=== PATIENT | male | born 1950 | race Caucasian/White ===

== ENCOUNTER 2024-03-21 23:05 | Inpatient (IN) ==
[2024-03-21 23:33] LABS: Basophils # (auto) 0.03 K/uL (0.00-0.20); Basophils % (auto) 0.4 %; Eosinophils # (auto) 0.02 K/uL (0.00-0.50); Eosinophils % (auto) 0.3 %; Hematocrit (blood only) 36.5 % (42.0-52.0); Hemoglobin 12.9 g/dl (14.0-18.0); Immature Granulocytes # (auto) 0.02 K/uL (0.01-0.20); Immature Granulocytes % (auto) 0.3 %; Lymphocytes # (auto) 0.34 K/uL (1.20-3.40); Mean Corpuscular Hemoglobin 30.6 pg (25.0-34.0); Mean Corpuscular Hgb Conc 35.3 g/dL (32.0-36.0); Mean Corpuscular Volume 86.5 fL (80.0-100.0); Mean Platelet Volume 8.8 fL (9.4-12.4); Monocytes # (auto) 1.03 K/uL (0.11-0.59); Monocytes % (auto) 15.2 %; Neutrophils # (auto) 5.32 K/uL (1.40-6.50); Neutrophils % (auto) 78.8 %; Platelet Count 155 K/uL (130-400); RDW Coefficient of Variation 13.2 % (11.5-14.5); RDW Standard Deviation 41.3 fL (36.4-46.3); Red Blood Count 4.22 M/uL (4.70-6.10); White Blood Count 6.76 K/ul (4.8-10.8)
--- NOTE | 2024-03-21 23:41 | Emergency Department Note ---
Impression & Plan Influenza A, Acute hypoxemic respiratory failure ED Provider Note NAME: ARNULFO [id number] SHER AGE: 74 SEX: M : 1950 ARRIVES VIA: Ambulance INFORMANT: Patient, ED PROVIDER(S): Rinku Redd MD CHIEF COMPLAINT: Shortness of breath, fever, weakness HPI: This is a 74-year-old male presenting for 2 days worth of shortness of breath, fever and weakness. Patient notes that he has been sick on and off for the past few weeks but increasingly weak over the past 2 days. He notes that he feels he is at a fever, significant cough. He has chest pain when he coughs. Chou no nausea or vomiting. No abdominal pain. Reports no pleurisy. ROS: See above HPI for pertinent positives & negatives. A total of 10 systems reviewed and were otherwise negative. PAST MEDICAL HISTORY: See Below PAST SURGICAL HISTORY: See Below FAMILY HISTORY: See Below SOCIAL HISTORY: See Below HOME MEDICATIONS: See Below ALLERGIES: See Below VITALS: See Below PHYSICAL EXAMINATION: General: resting comfortably in no acute distress Head: Normocephalic and atraumatic Eyes: Normal inspection, extraocular muscles intact Ear, nose, throat: Normal external exam Neck: Normal range of motion Respiratory: lungs clear to auscultation bilaterally Cardiovascular: Regular rate/rhythm, no murmur GI: soft, nontender, no guarding or rebound Extremities: nontender, moves all extremities Neuro: The patient awake and alert, appropriately conversive, no focal deficits, symmetric faces Skin: Warm, dry, and intact MEDICAL DECISION MAKING: This is a 74-year-old male presented for shortness of breath, fever and weakness. Overall patient appears sick with either upper respiratory infection or pneumonia. He is febrile here to 38.6, he is hypoxic. Will do chest x-ray to assess for pneumonia. Will do basic blood work, chest x-ray, upper respiratory panel -Chest Xray independently interpreted by me showing no pneumothorax, focal opacity, or pleural effusions. -Blood work reviewed with no similar leukocytosis or anemia. Normal electrolytes. Significant hyperglycemia without anion gap. -Patient is positive for influenza A -ECG independently interpreted by me with sinus rhythm with first-degree AV block, rate 94 normal UT, normal QRS, normal QTc, no ST segment elevations consistent with STEMI criteria -As patient is hypoxia with influenza, will admit for further treatment Differential diagnosis: Pneumonia, upper respiratory infection, PE Independent History obtained from: Snf staff Diagnostics interpreted by me: ECG: ECG independently interpreted by me with normal sinus rhythm, rate of 94, first-degree AV block, normal QRS, normal QTc, no ST segment elevations consistent with STEMI criteria Cardiac Monitoring: An order was placed for continuous cardiac monitoring. The monitor shows a rate of 93 with sinus rhythm. Past Med/Surg History Problem List (Updated 03/22/24 @ 04:12 by Rinku Redd MD) Acute hypoxemic respiratory failure (Acute) Influenza A (Acute) HBP (high blood pressure) First degree atrioventricular block by electrocardiogram Chest discomfort Near syncope Encounter for pre-operative examination Medical History Aortic aneurysm Asthma BPH (benign prostatic hyperplasia) Cancer Cardiac angina Chronic back pain Diabetes mellitus, type 2 Heart palpitations Herniated disc Hypertension IBS (irritable bowel syndrome) Kidney stones Myocardial Infarction Osteoarthritis Rheumatoid arthritis Temporomandibular joint disorder Surgical History H/O exploratory laparotomy HX EXPLORATORY SURGERY History of appendectomy History of cardiac cath 10 YEARS AGO AT [facility] History of colonoscopy History of left cataract surgery Social History Smoking Status: Former smoker Cigarettes Per Day: QUIT 1985; Second Hand Exposure: No; Do You Dip or Chew Tobacco: No; Hx Alcohol Use: No Hx Substance Use: No Preferred Language: Bahamian Communication Ability: Effective Customer Solutions Representative Required: No Beliefs That Will Affect Care: None Current [facility] Feels Safe at Home: Yes Allergies Allergies Allergy/AdvReac Type Severity Reaction Status Date / Time No Known Allergies Allergy Verified 09/12/21 13:17 Home Meds Home Medications Medication Instructions Recorded Confirmed aspirin 81 mg tablet,delayed 81 mg PO QAM 03/25/18 09/12/21 release (Aspir-Low) metformin 1,000 mg tablet 1,000 mg PO BID 03/25/18 09/12/21 montelukast 10 mg tablet 10 mg PO QAM 03/25/18 09/12/21 (Singulair) atorvastatin 20 mg tablet 20 mg PO QAM 01/17/21 09/12/21 duloxetine 60 mg capsule,delayed 60 mg PO QAM 01/17/21 09/12/21 release sprinkle insulin NPH-regular 70-30 U-100 28 unit subcut BID 01/17/21 09/12/21 insulin 100 unit/mL subcutaneous pen (Novolin 70-30 FlexPen U-100 Insulin) insulin regular human 100 unit/mL 1 sliding scale dose subcut 01/17/21 09/12/21 (3 mL) subcutaneous pen (Novolin R USEASDIRECTD FlexPen) lisinopril 10 mg tablet 10 mg PO QAM 01/17/21 09/12/21 albuterol sulfate inhalation 09/12/21 09/12/21 lactulose 10 gram/15 mL oral 10 g PO DAILY PRN 09/12/21 09/12/21 solution sodium phosphates 19 gram-7 118 ml UT DAILY PRN 09/12/21 09/12/21 gram/118 mL enema (Fleet Enema) tamsulosin 0.4 mg capsule (Flomax) 0.4 mg PO DAILY 09/12/21 09/12/21 Results & Data (ED) Vital Signs Vital Signs - 24 hr 03/21/24 23:09 03/21/24 23:09 03/21/24 23:09 Temperature 38.6 C H 38.6 C H Temperature Source Oral Oral Pulse Rate 90 Pulse Rate [Apical] 88 Pulse Rhythm Regular Pulse Rhythm [Apical] Regular Pulse Strength Normal Pulse Strength [Apical] Normal Respiratory Rate 18 18 Respiratory Effort / Characteristics Non-Labored Spontaneous Non-Labored Spontaneous Respiratory Depth Normal Normal Respiratory Pattern Regular Regular Blood Pressure 111/75 Blood Pressure [Right Arm] 111/75 Blood Pressure Mean 87 Blood Pressure Mean [Right Arm] 87 Blood Pressure Position Semi-fowlers Blood Pressure Position [Right Arm] Semi-fowlers Pulse Oximetry 97 97 97 Oxygen Delivery Method Nasal Cannula Nasal Cannula Nasal Cannula Oxygen Flow Rate 4 4 4 Sepsis Recent Fever Within 48 Hours Yes Sepsis New/Unexplained Change in Mental Status No Sepsis Action Taken by Nursing No Action Required 03/21/24 23:09 03/21/24 23:10 03/22/24 01:00 Temperature Temperature Source Pulse Rate 88 93 H Pulse Rate [Apical] 76 Pulse Rhythm Regular Pulse Rhythm [Apical] Regular Pulse Strength Pulse Strength [Apical] Normal Respiratory Rate 18 18 Respiratory Effort / Characteristics Non-Labored Spontaneous Respiratory Depth Normal Respiratory Pattern Regular Blood Pressure Blood Pressure [Right Arm] 101/67 Blood Pressure Mean Blood Pressure Mean [Right Arm] 78 Blood Pressure Position Blood Pressure Position [Right Arm] Semi-fowlers Pulse Oximetry 97 94 Oxygen Delivery Method Nasal Cannula Nasal Cannula Oxygen Flow Rate 4 4 Sepsis Recent Fever Within 48 Hours Sepsis New/Unexplained Change in Mental Status Sepsis Action Taken by Nursing 03/22/24 03:00 03/22/24 03:03 Temperature Temperature Source Pulse Rate 70 Pulse Rate [Apical] 65 Pulse Rhythm Pulse Rhythm [Apical] Regular Pulse Strength Pulse Strength [Apical] Normal Respiratory Rate 18 Respiratory Effort / Characteristics Non-Labored Spontaneous Respiratory Depth Normal Respiratory Pattern Regular Blood Pressure Blood Pressure [Right Arm] 121/73 Blood Pressure Mean Blood Pressure Mean [Right Arm] 89 Blood Pressure Position Blood Pressure Position [Right Arm] Semi-fowlers Pulse Oximetry 97 Oxygen Delivery Method Room Air Oxygen Flow Rate Sepsis Recent Fever Within 48 Hours Sepsis New/Unexplained Change in Mental Status Sepsis Action Taken by Nursing Laboratory Data 03/21/24 23:13 03/21/24 23:13 Lab Results 03/21/24 03/21/24 Range/Units 23:13 23:53 WBC 6.76 (4.8-10.8) K/ul RBC 4.22 L (4.70-6.10) M/uL Hgb 12.9 L (14.0-18.0) g/dl Hct 36.5 L (42.0-52.0) % MCV 86.5 (80.0-100.0) fL MCH 30.6 (25.0-34.0) pg MCHC 35.3 (32.0-36.0) g/dL RDW Std Deviation 41.3 (36.4-46.3) fL RDW Coeff of Sandra 13.2 (11.5-14.5) % Plt Count 155 (130-400) K/uL MPV 8.8 L (9.4-12.4) fL Immature Gran % (Auto) 0.3 % Neut % (Auto) 78.8 % Lymph % (Auto) 5.0 % [place] % (Auto) 15.2 % Eos % (Auto) 0.3 % Baso % (Auto) 0.4 % Neut # (Auto) 5.32 (1.40-6.50) K/uL Lymph # (Auto) 0.34 L (1.20-3.40) K/uL [place] # (Auto) 1.03 H (0.11-0.59) K/uL Eos # (Auto) 0.02 (0.00-0.50) K/uL Baso # (Auto) 0.03 (0.00-0.20) K/uL Immature Gran # (Auto) 0.02 (0.01-0.20) K/uL Sodium 135 L (136-145) mmol/L Potassium 3.9 (3.5-5.1) mmol/L Chloride 101 (98-107) mmol/L Carbon Dioxide 25 (21-32) mmol/L Anion Gap 9 (3-11) BUN 19 (6-23) mg/dl Creatinine 1.03 (0.6-1.4) mg/dl Est Cr Clr Drug Dosing 83.0 ml/min eGFR 76.70 BUN/Creatinine Ratio 18.4 (10-20) Glucose 312 H* (70-99(Fasting)) mg/dl Lactate 2.0 (0.4-2.0) mmol/L Calcium 8.1 L (8.6-10.3) mg/dl Total Bilirubin 1.0 (0.2-1.0) mg/dl AST 13 (13-39) U/L ALT 15 (7-52) U/L Alkaline Phosphatase 51 (34-104) U/L Total Protein 7.1 (6.0-8.3) gm/dl Albumin 4.0 (3.4-5.0) gm/dl Globulin 3.1 (2.5-4.0) gm/dl Albumin/Globulin Ratio 1.3 (0.9-2) TSH 1.257 (0.300-4.500) uIu/ml Nasal Influ A H1 2008 PCR DETECTED A (NotDetected) Adenovirus (PCR) Not Detected (NotDetected) B. pertussis DNA (PCR) Not Detected (NotDetected) B.parapertussis DNA PCR Not Detected (NotDetected) C. pneumoniae DNA (PCR) Not Detected (NotDetected) Coronavirus OC43 (PCR) Not Detected (NotDetected) Coronavirus HKU1 (PCR) Not Detected (NotDetected) Coronavirus 229E (PCR) Not Detected (NotDetected) SARS-CoV-2 (PCR) Not Detected (NotDetected) Coronavirus NL63 (PCR) Not Detected (NotDetected) Human Metapneumovir PCR Not Detected (NotDetected) Influenza Type B (PCR) Not Detected (NotDetected) M. pneumoniae (PCR) Not Detected (NotDetected) Parainfluenza 1 (PCR) Not Detected (NotDetected) Parainfluenza 2 (PCR) Not Detected (NotDetected) Parainfluenza 3 (PCR) Not Detected (NotDetected) Parainfluenza 4 (PCR) Not Detected (NotDetected) RSV (PCR) Not Detected (NotDetected) Entero/Rhino (PCR) Not Detected (NotDetected) Administered Medications Discontinued Medications Sodium Chloride (Nss) 1,000 mls @ 999 mls/hr IV .Q1H1M ONE Stop: 03/22/24 00:40 Last Infusion: 03/22/24 00:53 Dose: Infused Documented By: Admin: 03/21/24 23:45 Dose: 999 mls/hr Documented By: IDD Ketorolac Tromethamine (Ketorolac Tromethamine 15 Mg/Ml Vial) 15 mg IV NOW ONE Stop: 03/21/24 23:41 Last Admin: 03/21/24 23:44 Dose: 15 mg Documented By: IDD Imaging Data Radiologist's Impression: Chest X-Ray 03/21/24 23:09 Exam(s): XR CXR 1 VIEW EXAM: XR Chest, 1 View CLINICAL HISTORY: Reason for exam: weakness, sob, cough. TECHNIQUE: Frontal view of the chest. COMPARISON: No relevant prior studies available. FINDINGS: Lungs: Mild pulmonary vascular congestion. No consolidation. Pleural space: Unremarkable. No pneumothorax. Heart: Unremarkable. No cardiomegaly. Mediastinum: Unremarkable. Normal mediastinal contour. Bones/joints: Unremarkable. No acute fracture. IMPRESSION: Mild pulmonary vessel congestion Electronically signed by: Judd Greenwood MD 03/22/24 01:35 AM Discharge Plan Visit Data Chief Complaint: Weakness Stated Complaint: Weakness, Fever, Cough ED Provider: Rinku Redd Discharge Problem: Influenza A, Acute hypoxemic respiratory failure Forms Stand Alone Forms: [facility] Prescriptions Prescriptions: No Action Fleet Enema 19-7 gram/118 mL enema 118 ml UT DAILY PRN lactulose 10 gram/15 mL solution 10 g PO DAILY PRN tamsulosin [Flomax] 0.4 mg capsule 0.4 mg PO DAILY albuterol sulfate inhalation aspirin [Aspir-Low] 81 mg Tablet,Delayed Release (Dr/Ec) 81 mg PO QAM metformin 1,000 mg Tablet 1,000 mg PO BID montelukast [Singulair] 10 mg Tablet 10 mg PO QAM atorvastatin 20 mg Tablet 20 mg PO QAM lisinopril 10 mg Tablet 10 mg PO QAM Novolin R FlexPen 100 unit/mL (3 mL) Insulin Pen 1 sliding scale dose SUBCUT USEASDIRECTD Rx Instructions: 151-200 =2u, 201-250 = 4u, 251-300 = 6u, 301-350 = 8u, 351-400 = 10u, 401-450 = 12u, over 451 [address] md Pacheco 70-30 FlexPen U-100 100 unit/mL (70-30) Insulin Pen 28 unit SUBCUT BID duloxetine 60 mg Capsule, Delayed Rel Sprinkle 60 mg PO QAM Rx Instructions: takes with 30 mg total of 90mg Referrals Referrals: Roya WONG [Primary Care Provider] -
[2024-03-21] MEDS: KETOROLAC TROMETHAMINE 15 MG/ML VIAL IV ONE (23:44)
[2024-03-21] MEDS: SODIUM CHLORIDE 0.9% 1,000 ML IV ONE (23:45)
[2024-03-22 00:01] LABS: Albumin Globulin Ratio 1.3 (0.9-2); BUN Creatinine Ratio 18.4 (10-20); Calcium 8.1 mg/dl (8.6-10.3); Globulin 3.1 gm/dl (2.5-4.0); Potassium 3.9 mmol/L (3.5-5.1); Total Protein 7.1 gm/dl (6.0-8.3)
[2024-03-22 00:29] LABS: Thyroid Stimulating Hormone 1.257 uIu/ml (0.300-4.500)
[2024-03-22 00:48] LABS: Adenovirus PCR Not Detected (NotDetected); Bordetella parapertussis PCR Not Detected (NotDetected); Bordetella pertussis PCR Not Detected (NotDetected); Chlamydia pneumoniae PCR Not Detected (NotDetected); Coronavirus 229E PCR Not Detected (NotDetected); Coronavirus CoV-2 (COVID19)PCR Not Detected (NotDetected); Coronavirus HKU1 PCR Not Detected (NotDetected); Coronavirus NL63 PCR Not Detected (NotDetected); Coronavirus OC43PCR Not Detected (NotDetected); Human Metapneumovirus PCR Not Detected (NotDetected); Influenza A (H1 2009) PCR DETECTED (NotDetected); Influenza B PCR Not Detected (NotDetected); Mycoplasma pneumoniae PCR Not Detected (NotDetected); Parainfluenza Virus 1 PCR Not Detected (NotDetected); Parainfluenza Virus 2 PCR Not Detected (NotDetected); Parainfluenza Virus 3 PCR Not Detected (NotDetected); Parainfluenza Virus 4 PCR Not Detected (NotDetected); Respiratory Syncytial VirusPCR Not Detected (NotDetected); Rhinovirus/Enterovirus PCR Not Detected (NotDetected)
--- NOTE | 2024-03-22 01:37 | XRay Report ---
Exam(s): XR CXR 1 VIEW EXAM: XR Chest, 1 View CLINICAL HISTORY: Reason for exam: weakness, sob, cough. TECHNIQUE: Frontal view of the chest. COMPARISON: No relevant prior studies available. FINDINGS: Lungs: Mild pulmonary vascular congestion. No consolidation. Pleural space: Unremarkable. No pneumothorax. Heart: Unremarkable. No cardiomegaly. Mediastinum: Unremarkable. Normal mediastinal contour. Bones/joints: Unremarkable. No acute fracture. IMPRESSION: Mild pulmonary vessel congestion Electronically signed by: Judd Greenwood MD 03/22/24 01:35 AM
--- NOTE | 2024-03-22 04:55 | History & Physical Report ---
Date of Service March 22, 2024 Assessment & Plan (1) Influenza A: Plan: 74-year-old male who is currently residing at residential with past medical history significant for diabetes, hypertension, rheumatoid arthritis, irritable bowel syndrome, kidney stones, osteoarthritis, BPH, chronic back pain, asthma and longstanding chest discomfort comes because of weakness somewhat lethargic and found to have flu. Patient says having cough for 2 weeks. Shortness of breath for 2 weeks. But about 1 day ago developed fever. Feeling very weak. Appetite is down. Pain all over. Complains chest pain but seems to be chronic. No nausea or vomiting. No diarrhea. Micturating okay. No abdominal pain. Currently resting comfortably and hemodynamically stable. Influenza A Presents with weakness and some confusion Having temp spike Supportive care Droplet precautions Tamiflu Close monitor Diabetes Hold home medications Lantus and sliding scale Fall HbA1c levels Glycemic pharmacy consult History of hypertension On amlodipine and losartan Will monitor DVT prophylaxis Lovenox subcu Disposition Med/telemetry Full code History of Present Illness Chief Complaint: Weakness, flu Primary Care Provider: MARVIN Pryor 74-year-old male who is currently residing at residential with past medical history significant for diabetes, hypertension, rheumatoid arthritis, irritable bowel syndrome, kidney stones, osteoarthritis, BPH, chronic back pain, asthma and longstanding chest discomfort comes because of weakness somewhat lethargic and found to have flu. Patient says having cough for 2 weeks. Shortness of breath for 2 weeks. But about 1 day ago developed fever. Feeling very weak. Appetite is down. Pain all over. Complains chest pain but seems to be chronic. No nausea or vomiting. No diarrhea. Micturating okay. No abdominal pain. Currently resting comfortably and hemodynamically stable. Past medical history. As mentioned above Past surgical history. Expiratory laparotomy. History of appendectomy cardiac cath. Colonoscopy. Cataract surgery. Social history. Quit smoking 1986 packs per records. No alcohol history. No drug use. Current living in correction[facility] facility. Allergies Allergy/AdvReac Type Severity Reaction Status Date / Time No Known Allergies Allergy Verified 09/12/21 13:17 Home Medications Medication Instructions Recorded Confirmed Type albuterol sulfate 90 mcg/actuation 2 puff inhalation QID PRN 03/22/24 03/22/24 History aerosol inhaler Shortness Of Breath Or Wheezing amlodipine 2.5 mg tablet 2.5 mg PO DAILY 03/22/24 03/22/24 History aspirin 81 mg tablet,delayed 81 mg PO DAILY 03/22/24 03/22/24 History release atorvastatin 10 mg tablet 10 mg PO DAILY 03/22/24 03/22/24 History duloxetine 60 mg capsule,delayed 60 mg PO DAILY 03/22/24 03/22/24 History release insulin human U-100 NPH-regulr 34 unit subcut BID 03/22/24 03/22/24 History 70-30 mix 100 unit/mL subcutaneous susp (Novolin 70/30 U-100 Insulin) insulin regular human 100 unit/mL 1 sliding scale dose subcut 03/22/24 03/22/24 History (3 mL) subcutaneous pen (Novolin R USEASDIRECTD FlexPen) losartan 100 mg tablet 100 mg PO DAILY 03/22/24 03/22/24 History metformin 1,000 mg tablet 1,000 mg PO BID 03/22/24 03/22/24 History montelukast 10 mg PO DAILY 03/22/24 03/22/24 History Past Med/Surg History Problem List (Updated 03/22/24 @ 04:12 by Rinku Redd MD) Acute hypoxemic respiratory failure (Acute) Influenza A (Acute) HBP (high blood pressure) First degree atrioventricular block by electrocardiogram Chest discomfort Near syncope Encounter for pre-operative examination Medical History Aortic aneurysm Asthma BPH (benign prostatic hyperplasia) Cancer Cardiac angina Chronic back pain Diabetes mellitus, type 2 Heart palpitations Herniated disc Hypertension IBS (irritable bowel syndrome) Kidney stones Myocardial Infarction Osteoarthritis Rheumatoid arthritis Temporomandibular joint disorder Surgical History H/O exploratory laparotomy HX EXPLORATORY SURGERY History of appendectomy History of cardiac cath 10 YEARS AGO AT [facility] History of colonoscopy History of left cataract surgery Social History Smoking Status: Former smoker Cigarettes Per Day: QUIT 1985; Second Hand Exposure: No; Do You Dip or Chew Tobacco: No; Hx Alcohol Use: No Hx Substance Use: No Preferred Language: Georgian Communication Ability: Effective [employer] Products Inspectors Required: No Beliefs That Will Affect Care: None Current Living Situation: Other Current Living Situation Comment[facility] Feels Safe at Home: Yes Safety Concerns: Feels Safe At This Time Review of Systems Review of Systems: All systems reviewed & are unremarkable except as noted in HPI & below Physical Exam Physical Exam: General- Not in distress Head- atraumatic Eyes- PERRL. ENT- oropharynx clear Neck- supple, no JVD. Lungs- clear to auscultation no wheezing or crackles Heart- regular rhythm; no murmur, no gallop. Abdomen- normal bowel sounds, soft, nontender, no distension Extremities- no pretibial edema, no erythema seen Neuro- alert, oriented PERRL, no facial palsy; no dysarthria; moves extremities Results & Data Results & Data Vital Signs (Past 12 Hours) Vital Signs Temp Pulse Pulse Resp BP BP Pulse Ox 03/22/24 03:03 70 03/22/24 03:00 65 18 121/73 97 03/22/24 01:00 76 18 101/67 94 03/21/24 23:10 93 H 03/21/24 23:09 88 18 97 03/21/24 23:09 38.6 C H 88 18 111/75 97 03/21/24 23:09 97 03/21/24 23:09 38.6 C H 90 18 111/75 97 O2 Del Method O2 Flow Rate 03/22/24 03:03 03/22/24 03:00 Room Air 03/22/24 01:00 Nasal Cannula 4 03/21/24 23:10 03/21/24 23:09 Nasal Cannula 4 03/21/24 23:09 Nasal Cannula 4 03/21/24 23:09 Nasal Cannula 4 03/21/24 23:09 Nasal Cannula 4 Diagnostic Findings Laboratory Results WBC 6.76 K/ul (4.8-10.8) 03/21/24 23:13 RBC 4.22 M/uL (4.70-6.10) L 03/21/24 23:13 Hgb 12.9 g/dl (14.0-18.0) L 03/21/24 23:13 Hct 36.5 % (42.0-52.0) L 03/21/24 23:13 MCV 86.5 fL (80.0-100.0) 03/21/24 23:13 MCH 30.6 pg (25.0-34.0) 03/21/24 23:13 MCHC 35.3 g/dL (32.0-36.0) 03/21/24 23:13 RDW Std Deviation 41.3 fL (36.4-46.3) 03/21/24 23:13 RDW Coeff of Sandra 13.2 % (11.5-14.5) 03/21/24 23:13 Plt Count 155 K/uL (130-400) 03/21/24 23:13 MPV 8.8 fL (9.4-12.4) L 03/21/24 23:13 Immature Gran % (Auto) 0.3 % 03/21/24 23:13 Neut % (Auto) 78.8 % 03/21/24 23:13 Lymph % (Auto) 5.0 % 03/21/24 23:13 [place] % (Auto) 15.2 % 03/21/24 23:13 Eos % (Auto) 0.3 % 03/21/24 23:13 Baso % (Auto) 0.4 % 03/21/24 23:13 Neut # (Auto) 5.32 K/uL (1.40-6.50) 03/21/24 23:13 Lymph # (Auto) 0.34 K/uL (1.20-3.40) L 03/21/24 23:13 [place] # (Auto) 1.03 K/uL (0.11-0.59) H 03/21/24 23:13 Eos # (Auto) 0.02 K/uL (0.00-0.50) 03/21/24 23:13 Baso # (Auto) 0.03 K/uL (0.00-0.20) 03/21/24 23:13 Immature Gran # (Auto) 0.02 K/uL (0.01-0.20) 03/21/24 23:13 Sodium 135 mmol/L (136-145) L 03/21/24 23:13 Potassium 3.9 mmol/L (3.5-5.1) 03/21/24 23:13 Chloride 101 mmol/L (98-107) 03/21/24 23:13 Carbon Dioxide 25 mmol/L (21-32) 03/21/24 23:13 Anion Gap 9 (3-11) 03/21/24 23:13 BUN 19 mg/dl (6-23) 03/21/24 23:13 Creatinine 1.03 mg/dl (0.6-1.4) 03/21/24 23:13 Est Cr Clr Drug Dosing 83.0 ml/min 03/21/24 23:13 eGFR 76.70 03/21/24 23:13 BUN/Creatinine Ratio 18.4 (10-20) 03/21/24 23:13 Glucose 312 mg/dl (70-99(Fasting)) H* 03/21/24 23:13 Lactate 2.0 mmol/L (0.4-2.0) 03/21/24 23:53 Calcium 8.1 mg/dl (8.6-10.3) L 03/21/24 23:13 Total Bilirubin 1.0 mg/dl (0.2-1.0) 03/21/24 23:13 AST 13 U/L (13-39) 03/21/24 23:13 ALT 15 U/L (7-52) 03/21/24 23:13 Alkaline Phosphatase 51 U/L (34-104) 03/21/24 23:13 Total Protein 7.1 gm/dl (6.0-8.3) 03/21/24 23:13 Albumin 4.0 gm/dl (3.4-5.0) 03/21/24 23:13 Globulin 3.1 gm/dl (2.5-4.0) 03/21/24 23:13 Albumin/Globulin Ratio 1.3 (0.9-2) 03/21/24 23:13 TSH 1.257 uIu/ml (0.300-4.500) 03/21/24 23:13 Nasal Influ A H1 2008 PCR DETECTED (NotDetected) A 03/21/24 23:13 Adenovirus (PCR) Not Detected (NotDetected) 03/21/24 23:13 B. pertussis DNA (PCR) Not Detected (NotDetected) 03/21/24 23:13 B.parapertussis DNA PCR Not Detected (NotDetected) 03/21/24 23:13 C. pneumoniae DNA (PCR) Not Detected (NotDetected) 03/21/24 23:13 Coronavirus OC43 (PCR) Not Detected (NotDetected) 03/21/24 23:13 Coronavirus HKU1 (PCR) Not Detected (NotDetected) 03/21/24 23:13 Coronavirus 229E (PCR) Not Detected (NotDetected) 03/21/24 23:13 SARS-CoV-2 (PCR) Not Detected (NotDetected) 03/21/24 23:13 Coronavirus NL63 (PCR) Not Detected (NotDetected) 03/21/24 23:13 Human Metapneumovir PCR Not Detected (NotDetected) 03/21/24 23:13 Influenza Type B (PCR) Not Detected (NotDetected) 03/21/24 23:13 M. pneumoniae (PCR) Not Detected (NotDetected) 03/21/24 23:13 Parainfluenza 1 (PCR) Not Detected (NotDetected) 03/21/24 23:13 Parainfluenza 2 (PCR) Not Detected (NotDetected) 03/21/24 23:13 Parainfluenza 3 (PCR) Not Detected (NotDetected) 03/21/24 23:13 Parainfluenza 4 (PCR) Not Detected (NotDetected) 03/21/24 23:13 RSV (PCR) Not Detected (NotDetected) 03/21/24 23:13 Entero/Rhino (PCR) Not Detected (NotDetected) 03/21/24 23:13 Impressions Chest X-Ray 03/21/24 23:09 Exam(s): XR CXR 1 VIEW EXAM: XR Chest, 1 View CLINICAL HISTORY: Reason for exam: weakness, sob, cough. TECHNIQUE: Frontal view of the chest. COMPARISON: No relevant prior studies available. FINDINGS: Lungs: Mild pulmonary vascular congestion. No consolidation. Pleural space: Unremarkable. No pneumothorax. Heart: Unremarkable. No cardiomegaly. Mediastinum: Unremarkable. Normal mediastinal contour. Bones/joints: Unremarkable. No acute fracture. IMPRESSION: Mild pulmonary vessel congestion Electronically signed by: Judd Greenwood MD 03/22/24 01:35 AM ECG Additional Comments: ECG. Sinus rhythm with first-degree AV block at rate of 94. No acute ST changes seen. Code Status & VTE Plan VTE Prophylaxis Plan VTE Prophylaxis will be ordered: Yes
[2024-03-22] MEDS ORDERED: CARBOHYDRATES FOR HYPOGLYCEMIA PO PRN (05:43)
[2024-03-22] MEDS ORDERED: DEXTROSE 50% 50 ML SYRINGE IV PRN (05:43)
[2024-03-22] MEDS ORDERED: GLUCOSE 40% GEL 15 GM TUBE PO PRN (05:43)
[2024-03-22] MEDS ORDERED: NITROGLYCERIN SL 0.4 MG/TAB TAB SL PRN (05:43)
[2024-03-22] MEDS ORDERED: ALBUTEROL HFA 8 GM INHALER INH PRN (05:43)
[2024-03-22] MEDS ORDERED: GLUCAGON FOR INJ 1 MG VIAL SQ PRN (05:43)
[2024-03-22] MEDS ORDERED: ALBUT/IPRATROP 3MG/0.5MG NEB 3 ML VIAL NEB PRN (05:43)
[2024-03-22] MEDS ORDERED: guaiFENesin/DEXTROM SYRUP 100MG/10MG 5ML UDC PO PRN (05:43)
[2024-03-22] MEDS ORDERED: PHARMACY GLYCEMIC MGMT CONSULT PRN (05:43)
[2024-03-22] MEDS ORDERED: GLUCOSE 10 TAB/TUBE PO PRN (05:43)
[2024-03-22 06:49] LABS: Basophils # (auto) 0.03 K/uL (0.00-0.20); Basophils % (auto) 0.5 %; Eosinophils # (auto) 0.01 K/uL (0.00-0.50); Eosinophils % (auto) 0.2 %; Hematocrit (blood only) 39.2 % (42.0-52.0); Hemoglobin 13.3 g/dl (14.0-18.0); Immature Granulocytes # (auto) 0.02 K/uL (0.01-0.20); Immature Granulocytes % (auto) 0.3 %; Lymphocytes # (auto) 0.63 K/uL (1.20-3.40); Lymphocytes % (auto) 10.1 %; Mean Corpuscular Hemoglobin 29.9 pg (25.0-34.0); Mean Corpuscular Hgb Conc 33.9 g/dL (32.0-36.0); Mean Corpuscular Volume 88.1 fL (80.0-100.0); Mean Platelet Volume 8.8 fL (9.4-12.4); Monocytes # (auto) 1.09 K/uL (0.11-0.59); Monocytes % (auto) 17.5 %; Neutrophils # (auto) 4.46 K/uL (1.40-6.50); Neutrophils % (auto) 71.4 %; Platelet Count 130 K/uL (130-400); RDW Coefficient of Variation 13.5 % (11.5-14.5); RDW Standard Deviation 43.9 fL (36.4-46.3); Red Blood Count 4.45 M/uL (4.70-6.10); White Blood Count 6.24 K/ul (4.8-10.8)
[2024-03-22] MEDS: LANTUS PER UNIT CHARGE SQ STA (06:51)
[2024-03-22] MEDS: INSULIN ASPART PER UNIT CHARGE SC STA (06:52)
[2024-03-22 07:07] LABS: BUN Creatinine Ratio 21.9 (10-20); Calcium 8.6 mg/dl (8.6-10.3); Creatinine Clr Calc Pharmacy 81.4 ml/min; Magnesium 1.5 mg/dl (1.7-2.4); Potassium 3.9 mmol/L (3.5-5.1)
[2024-03-22 07:14] LABS: Troponin I High Sensitivity 11.5 pg/ml (0-20)
[2024-03-22] MEDS: MAGNESIUM SULFATE / D5W 1 GM/100 ML BAG IV ONE (08:30)
[2024-03-22] MEDS ORDERED: LANTUS PER UNIT CHARGE SQ SCH (09:00)
--- NOTE | 2024-03-22 09:02 | Pharmacy Report ---
Pharmacy Glycemic Short Note 2 - Date of Service March 22, 2024 - Glycemic Short BSG Results (Last 24 hours): 03/21/24 03/22/24 03/22/24 23:13 06:37 06:43 Glucose 312 H* 289 H POC Glucose 283 H 03/22/24 08:32 Glucose POC Glucose 245 H OUTPATIENT ANTIDIABETIC REGIMEN: * NovoLin 70/30 34 units SC BID * Novolin R SSI * A1c pending ASSESSMENT: * 74 yo M, currently residing at [facility], [facility] type 2 DM, HTN, RA, IBS, kidney stones, OA, BPH, chronic back pain, asthma, admitted with Influenza A, on Tamiflu. * Managed on mixed insulin and regular insulin sliding scale, will change to basal bolus for inpatient glycemic control. PLAN FOR INPATIENT GLYCEMIC CONTROL: * Hold outpatient diabetes medications * Basal insulin * Lantus 40 units SQ daily (additional 10 units for BSG > 200 HS) * Bolus insulin * NovoLog per scale ACHS or Q6hrs while NPO * Goal Range: Low 110 mg/dL - High 140 mg/dL * Correction Factor: 15 mg/dL/unit * Nutritional / Prandial insulin per carb ratio of 1 unit per 6 grams CHO consumed
--- NOTE | 2024-03-22 09:15 | Electrocardiogram Report ---
Test Reason : Blood Pressure : */* mmHG Vent. Rate : 94 BPM Atrial Rate : 94 BPM P-R Int : 312 ms QRS Dur : 92 ms QT Int : 310 ms P-R-T Axes : 45 -27 44 degrees QTcB Int : 387 ms Sinus rhythm with 1st degree A-V block Otherwise normal ECG No previous ECGs available Confirmed by Robert Cedeno ([id number]) on 03/22/2024 9:15:13 AM Referred By: Roya SCI Confirmed By: Robert Cedeno
[2024-03-22] MEDS: DULoxetine HCL 60 MG CAP PO SCH (09:20)
[2024-03-22] MEDS: LOSARTAN POTASSIUM 50 MG TAB PO SCH (09:20)
[2024-03-22] MEDS: ATORVASTATIN 10 MG TAB PO SCH (09:20)
[2024-03-22] MEDS: ASPIRIN 81 MG ECTAB PO SCH (09:21)
[2024-03-22] MEDS: OSELTAMIVIR PHOSPHATE 75 MG CAP PO SCH (09:21)
[2024-03-22] MEDS: MONTELUKAST SODIUM 10 MG TABLET PO SCH (09:21)
[2024-03-22] MEDS: guaiFENesin 600 MG TABCR PO SCH (09:22)
[2024-03-22] MEDS: ACETAMINOPHEN 325 MG TAB PO PRN (09:22)
[2024-03-22] MEDS: INSULIN ASPART PER UNIT CHARGE SC SCH (09:23)
[2024-03-22] MEDS: amLODIPine BESYLATE 5 MG TAB PO SCH (09:28)
[2024-03-22] MEDS: ENOXAPARIN INJ 40 MG/0.4 ML SYR SQ SCH (09:28)
[2024-03-22 15:45] LABS: Appearance Urine Cloudy (Clear); Bacteria Urine Automated None Seen (None Seen); Bilirubin Urine Negative (Negative); Blood Urine Negative (Negative); Cast Urine Automated 0-2 /lpf (0-2); Color Urine Dark Yellow; Epithelial Cell Urine Auto 0-2 /hpf (0-2); Glucose Urine UA 3+ (Negative); Ketones Urine Trace (Negative); Leukocyte Esterase Urine Negative (Negative); Nitrite Urine Negative (Negative); Protein Urine 1+ (Negative); RBC Urine Automated 0-2 /hpf (0-2); Specific Gravity Urine 1.032 (1.000-1.030); Urobilinogen Urine Negative (Negative); WBC Urine Automated 0-5 /hpf (0-5); pH Urine 5.5 (4.5-7.5)
[2024-03-22] MEDS: LANTUS PER UNIT CHARGE SC SCH (20:44)
[2024-03-23 07:32] LABS: Hemoglobin 12.7 g/dl (14.0-18.0); Mean Corpuscular Hemoglobin 29.5 pg (25.0-34.0); Mean Corpuscular Hgb Conc 34.3 g/dL (32.0-36.0); Mean Platelet Volume 9.1 fL (9.4-12.4); Platelet Count 124 K/uL (130-400); RDW Coefficient of Variation 13.5 % (11.5-14.5); RDW Standard Deviation 42.3 fL (36.4-46.3)
[2024-03-23 07:41] LABS: BUN Creatinine Ratio 22.2 (10-20); Calcium 8.5 mg/dl (8.6-10.3); Creatinine Clr Calc Pharmacy 105.2 ml/min; Magnesium 1.7 mg/dl (1.7-2.4); Phosphorus 3.1 mg/dl (2.5-4.9); Potassium 3.5 mmol/L (3.5-5.1)
[2024-03-23] MEDS: LANTUS PER UNIT CHARGE SQ SCH (08:46)
--- NOTE | 2024-03-23 13:33 | Hospitalist Progress Note ---
Date of Service March 23, 2024 Assessment & Plan (1) Influenza A: Plan Pt is a 74-year-old male prisoner with past medical history significant for diabetes, hypertension, rheumatoid arthritis, irritable bowel syndrome, kidney stones, osteoarthritis, BPH, chronic back pain, asthma and longstanding chest discomfort presenting due to weakness, with lethargy and found to have the flu. Acute Hypoxic respiratory failure Influenza A Infection Generalized Weakness Presents with weakness and some confusion VBG pending chest xray noting pulm vascular congestion CTA chest ordered and pending to rule out PE respiratory viral panel positive for influenza UA suggestive of infection Supportive care Droplet precautions Tamiflu Rocephin Closely monitor Complicated UTI UA suggestive of infection Urine Cx growing Klebsiella On Rocephin Chest Pain Pt notes persistent chest pain EKG sinus with first degree heart block Trop wnl CTA chest pending Continue to monitor on telemetry Anemia, chronic Hgb in 12-13 range Continue to monitor Thrombocytopenia Platelets low acutely Continue to monitor Diabetes Hold home medications Lantus and sliding scale HgbA1c levels 8.7 Glycemic pharmacy consult History of hypertension On amlodipine and losartan Will monitor Diet: DMII, safe tray DVT prophylaxis: Lovenox subcu [facility]po: [facility] once medically [facility] Admission and Anticipated Discharge Date Admission Date: March 22, 2024 Subjective patient was seen sitting up in bed States he still having some chest pain Denying shortness of breath Review of Systems Review of Systems: All systems reviewed & are unremarkable except as noted in Subjective Physical Exam Physical Exam: General: Alert, oriented. No acute distress Skin: No noted rashes or bruises Psych: Appropriate mood and affect HEENT: NC/AT CV: RRR Resp: Breath sounds clear bilaterally, no increased effort of breathing Abdomen: Soft, nontender Extremities: No edema in lower extremities bilaterally. Results & Data Results & Data Vital Signs (Past 12 Hours) Vital Signs Temp Pulse Pulse Pulse Resp BP Pulse Ox 03/23/24 11:47 37.4 C 61 16 105/56 L 92 03/23/24 09:17 03/23/24 07:25 68 03/23/24 07:25 03/23/24 07:16 36.7 C 63 16 129/63 93 03/23/24 03:15 36.7 C 66 19 115/56 L 90 Pulse Ox O2 Del Method O2 Del Method O2 Flow Rate 03/23/24 11:47 Room Air 03/23/24 09:17 Nasal Cannula 2 03/23/24 07:25 03/23/24 07:25 96 Room Air 03/23/24 07:16 Room Air 03/23/24 03:15 Room Air Diagnostic Findings Chest X-Ray 03/21/24 23:09 Exam(s): XR CXR 1 VIEW EXAM: XR Chest, 1 View CLINICAL HISTORY: Reason for exam: weakness, sob, cough. TECHNIQUE: Frontal view of the chest. COMPARISON: No relevant prior studies available. FINDINGS: Lungs: Mild pulmonary vascular congestion. No consolidation. Pleural space: Unremarkable. No pneumothorax. Heart: Unremarkable. No cardiomegaly. Mediastinum: Unremarkable. Normal mediastinal contour. Bones/joints: Unremarkable. No acute fracture. IMPRESSION: Mild pulmonary vessel congestion Electronically signed by: Judd Greenwood MD 03/22/24 01:35 AM
[2024-03-23 17:07] LABS: Appearance Urine Clear (Clear); Bacteria Urine Automated 3+ (None Seen); Bilirubin Urine Negative (Negative); Blood Urine Negative (Negative); Cast Urine Automated 0-2 /lpf (0-2); Color Urine Yellow; Epithelial Cell Urine Auto 0-2 /hpf (0-2); Glucose Urine UA 2+ (Negative); Ketones Urine Trace (Negative); Leukocyte Esterase Urine Negative (Negative); Nitrite Urine Negative (Negative); Protein Urine Trace (Negative); RBC Urine Automated 0-2 /hpf (0-2); Specific Gravity Urine 1.022 (1.000-1.030); Urobilinogen Urine Negative (Negative); WBC Urine Automated 0-5 /hpf (0-5); pH Urine 5.5 (4.5-7.5)
[2024-03-23] MEDS: cefTRIAXone SODIUM 2,000 MG/50 ML BAG IV SCH (23:33)
[2024-03-24 06:48] LABS: Estimated Average Glucose 203 mg/dl; Hemoglobin A1C 8.7 % (4.5-5.6)
[2024-03-24 07:05] LABS: Basophils # (auto) 0.02 K/uL (0.00-0.20); Basophils % (auto) 0.6 %; Eosinophils # (auto) 0.14 K/uL (0.00-0.50); Eosinophils % (auto) 4.2 %; Hematocrit (blood only) 36.1 % (42.0-52.0); Hemoglobin 12.5 g/dl (14.0-18.0); Immature Granulocytes # (auto) 0.01 K/uL (0.01-0.20); Immature Granulocytes % (auto) 0.3 %; Lymphocytes # (auto) 1.23 K/uL (1.20-3.40); Lymphocytes % (auto) 37.2 %; Mean Corpuscular Hemoglobin 29.6 pg (25.0-34.0); Mean Corpuscular Hgb Conc 34.6 g/dL (32.0-36.0); Mean Corpuscular Volume 85.5 fL (80.0-100.0); Mean Platelet Volume 9.2 fL (9.4-12.4); Monocytes # (auto) 0.48 K/uL (0.11-0.59); Monocytes % (auto) 14.5 %; Neutrophils # (auto) 1.43 K/uL (1.40-6.50); Neutrophils % (auto) 43.2 %; Platelet Count 119 K/uL (130-400); RDW Coefficient of Variation 13.3 % (11.5-14.5); RDW Standard Deviation 41.8 fL (36.4-46.3); Red Blood Count 4.22 M/uL (4.70-6.10); White Blood Count 3.31 K/ul (4.8-10.8)
[2024-03-24 07:29] LABS: BUN Creatinine Ratio 17.3 (10-20); Calcium 8.6 mg/dl (8.6-10.3); Creatinine Clr Calc Pharmacy 104.3 ml/min; Magnesium 1.7 mg/dl (1.7-2.4); Phosphorus 3.5 mg/dl (2.5-4.9); Potassium 3.5 mmol/L (3.5-5.1)
--- NOTE | 2024-03-24 12:39 | Hospitalist Progress Note ---
Date of Service March 24, 2024 Assessment & Plan (1) Influenza A: Plan Pt is a 74-year-old male prisoner with past medical history significant for diabetes, hypertension, rheumatoid arthritis, irritable bowel syndrome, kidney stones, osteoarthritis, BPH, chronic back pain, asthma and longstanding chest discomfort presenting due to weakness, with lethargy and found to have the flu. Acute Hypoxic respiratory failure Influenza A Infection Generalized Weakness Presents with weakness and some confusion VBG pending chest xray noting pulm vascular congestion CTA chest ordered and pending to rule out PE respiratory viral panel positive for influenza UA suggestive of infection Supportive care Droplet precautions Tamiflu Rocephin Closely monitor Complicated UTI UA suggestive of infection Urine Cx growing Klebsiella On Rocephin Chest Pain Pt notes persistent chest pain EKG sinus with first degree heart block Trop wnl CTA chest pending Continue to monitor on telemetry Anemia, chronic Hgb in 12-13 range Continue to monitor Thrombocytopenia Platelets low acutely Continue to monitor Diabetes Hold home medications Lantus and sliding scale HgbA1c levels 8.7 Glycemic pharmacy consult History of hypertension On amlodipine and losartan Will monitor Diet: DMII, safe tray DVT prophylaxis: Lovenox subcu Dispo: Back to the nursing home once medically stable Admission and Anticipated Discharge Date Admission Date: March 22, 2024 Subjective patient was seen sitting up in bed States he still having some chest pain Discussion of possible discharge Denying shortness of breath Review of Systems Review of Systems: All systems reviewed & are unremarkable except as noted in Subjective Physical Exam Physical Exam: General: Alert, oriented. No acute distress Skin: No noted rashes or bruises Psych: Appropriate mood and affect HEENT: NC/AT CV: RRR Resp: Breath sounds clear bilaterally, no increased effort of breathing Abdomen: Soft, nontender Extremities: No edema in lower extremities bilaterally. Results & Data Results & Data Vital Signs (Past 12 Hours) Vital Signs Temp Pulse Pulse Resp BP Pulse Ox O2 Del Method 03/24/24 11:53 37.0 C 59 L 16 113/60 94 Room Air 03/24/24 07:42 37.2 C 64 16 121/72 93 Room Air 03/24/24 07:33 Room Air 03/24/24 07:23 55 L 03/24/24 07:23 03/24/24 04:00 37.0 C 59 L 18 112/74 93 Room Air O2 Del Method 03/24/24 11:53 03/24/24 07:42 03/24/24 07:33 03/24/24 07:23 03/24/24 07:23 Room Air 03/24/24 04:00
[2024-03-24 18:44] LABS: Base Excess VBG 2.5 mEq/L; HCO3 VBG 28 mmol/L; Oxygen Saturation VBG < 60.0 %; PCO2 VBG 45 mmHg (38-50); PO2 VBG 31 mmHg
[2024-03-24 20:16] VITALS: RESP 18
[2024-03-25 06:23] LABS: Basophils # (auto) 0.02 K/uL (0.00-0.20); Basophils % (auto) 0.6 %; Eosinophils # (auto) 0.14 K/uL (0.00-0.50); Eosinophils % (auto) 4.3 %; Hematocrit (blood only) 35.7 % (42.0-52.0); Hemoglobin 12.5 g/dl (14.0-18.0); Immature Granulocytes # (auto) 0.01 K/uL (0.01-0.20); Immature Granulocytes % (auto) 0.3 %; Lymphocytes # (auto) 1.28 K/uL (1.20-3.40); Lymphocytes % (auto) 38.9 %; Mean Corpuscular Hemoglobin 29.9 pg (25.0-34.0); Mean Corpuscular Volume 85.4 fL (80.0-100.0); Mean Platelet Volume 9.2 fL (9.4-12.4); Monocytes # (auto) 0.36 K/uL (0.11-0.59); Monocytes % (auto) 10.9 %; Neutrophils # (auto) 1.48 K/uL (1.40-6.50); Platelet Count 124 K/uL (130-400); RDW Coefficient of Variation 13.2 % (11.5-14.5); RDW Standard Deviation 41.5 fL (36.4-46.3); Red Blood Count 4.18 M/uL (4.70-6.10); White Blood Count 3.29 K/ul (4.8-10.8)
[2024-03-25 06:46] LABS: BUN Creatinine Ratio 15.1 (10-20); Calcium 8.6 mg/dl (8.6-10.3); Creatinine Clr Calc Pharmacy 115.8 ml/min; Magnesium 1.7 mg/dl (1.7-2.4); Potassium 3.5 mmol/L (3.5-5.1)
[2024-03-25] MEDS: LANTUS PER UNIT CHARGE SQ SCH (09:07)
[2024-03-25] MEDS: OPTIRAY 320 125ml IV ONE (09:12)
--- NOTE | 2024-03-25 09:27 | CT Scan Report ---
CT angio chest PE protocol CT DOSE: 876.27 mGy.cm HISTORY: 74 years-old Male with PE. Acute shortness of breath TECHNIQUE: Multiple CTA images of the chest were obtained after the intravenous administration of 118 ml Optiray. Coronal and sagittal MIPS were obtained from the axial data set and were submitted for review. All measurements were obtained according to NASCET criteria. A dose lowering technique was u tilized adhering to the principles of ALARA. COMPARISON: Chest radiograph 03/21/2024 FINDINGS: CTA: Heart is normal in size. Extensive coronary artery calcifications. No pericardial effusion. Atheroscl erosis of the aorta without aneurysm. Unremarkable pulmonary artery. CT CHEST: Unremarkable thyroid. No pathologically enlarged lymph nodes. No pneumothorax, pleural effusion or ov ert pulmonary edema. Mild pulmonary emphysema. Calcified subcentimeter granuloma superior segment lef t lower lobe. Mild left basilar mucous plugging with subsegmental tree-in-bud nodules on image 52 ser ies 4. Subcentimeter benign-appearing fissural nodules measure up to 3 mm bilaterally. Central airway s appear to be patent otherwise. No acute upper abdominal abnormality. Suggestion of hepatic steatosis. Cholecystectomy. Unremarkable soft tissues. No acute fracture. IMPRESSION: 1. No pulmonary emboli. 2. Mild basilar left lower lobe mucus plugging with an infectious or inflammatory bronchiolitis. 3. No pleural effusion, lobar airspace consolidation or lymphadenopathy. 4. Extensive coronary artery calcifications. ACT 112: Negative or not required by law. The above report was generated using voice recognition software. It may contain grammatical, syntax o r spelling errors. Electronically signed by: Nando Palmer M.D. 03/25/2024 9:25 AM
--- NOTE | 2024-03-25 10:17 | Pharmacy Report ---
Pharmacy Glycemic Short Note 2 - Date of Service March 25, 2024 - Glycemic Short BSG Results (Last 24 hours): 03/24/24 03/24/24 03/24/24 12:13 16:55 20:13 Glucose POC Glucose 171 H 149 H 110 H 03/25/24 03/25/24 05:41 08:19 Glucose 97 POC Glucose 119 H OUTPATIENT ANTIDIABETIC REGIMEN: * NovoLin 70/30 34 units SC BID * Novolin R SSI * A1c pending ASSESSMENT: 03/25 * Patient received total of 69 units of insulin yesterday, of which 40 units were basal * Fasting BSG trending down 97 mg/dL - will scale back slightly this AM * Provider adding on prednisone 20 mg later this AM daily ongoing. Will likely tighten CR for ongoing steroids 03/22 * 74 yo M, currently residing at [facility], [facility] type 2 DM, HTN, RA, IBS, kidney stones, OA, BPH, chronic back pain, asthma, admitted with Influenza A, on Tamiflu. * Managed on mixed insulin and regular insulin sliding scale, will change to basal bolus for inpatient glycemic control. PLAN FOR INPATIENT GLYCEMIC CONTROL: * Hold outpatient diabetes medications * Basal insulin * Lantus 35-40 units SQ daily * Bolus insulin * NovoLog per scale ACHS or Q6hrs while NPO * Goal Range: Low 110 mg/dL - High 140 mg/dL * Correction Factor: 12 mg/dL/unit * Nutritional / Prandial insulin per carb ratio of 1 unit per 5 grams CHO consumed
[2024-03-25] MEDS: predniSONE 20 MG TAB PO SCH ×2 (10:37→12:03)
[2024-03-25] MEDS: AZITHROMYCIN 250 MG TAB PO SCH (12:00)
--- NOTE | 2024-03-25 12:09 | Discharge Summary ---
Discharge Summary Date of Service March 25, 2024 Principal Dx & Hospital Course #1 = Principal Diagnosis (1) Influenza A: Plan Pt is a 74-year-old male prisoner with past medical history significant for diabetes, hypertension, rheumatoid arthritis, irritable bowel syndrome, kidney stones, osteoarthritis, BPH, chronic back pain, asthma and longstanding chest discomfort presenting due to weakness, with lethargy and found to have the flu. Acute Hypoxic respiratory failure Influenza A Infection Generalized Weakness Presents with weakness and some confusion VBG normal chest xray noting pulm vascular congestion CTA chest noting infectious bronchiolitis and mucous plugging, no PE respiratory viral panel positive for influenza UA suggestive of infection Supportive care Droplet precautions Tamiflu Rocephin generalized weakness likely in setting of above On the day of discharge, patient was discharged with an additional 2 days of Tamiflu, 2 more days of azithromycin and 8 more days of cefdinir (also being used to treat UTI, see below). Continue with prednisone 40 mg daily for an additional 3 days. Close PCP follow-up after discharge. Consider pulmonology follow-up as well. Complicated UTI UA suggestive of infection Urine Cx growing Pansensitive Klebsiella On Rocephin and transitioned to 8 more days of cefdinir on discharge Chest Pain Pt notes persistent chest pain EKG sinus with first degree heart block Trop wnl CTA chest as above Continue to monitor on telemetry Anemia, chronic Hgb in 12-13 range Continue to monitor Thrombocytopenia Platelets low acutely, 124K on discharge Continue to monitor Close pcp follow-up after discharge Diabetes Hold home medications Lantus and sliding scale HgbA1c levels 8.7 Glycemic pharmacy consult History of hypertension On amlodipine and losartan continue Notes For Next Care Provider consider follow-up with pulmonology Medication Changes From Visit Azithromycin 500 mg daily for 2 days Cefdinir 300 mg twice daily for 8 days Tamiflu 75mg BID x 2 days prednisone 40mg daily for 3 days Admission HPI Per Admitting Provider 74-year-old male who is currently residing at custodial with past medical history significant for diabetes, hypertension, rheumatoid arthritis, irritable bowel syndrome, kidney stones, osteoarthritis, BPH, chronic back pain, asthma and longstanding chest discomfort comes because of weakness somewhat lethargic and found to have flu. Patient says having cough for 2 weeks. Shortness of breath for 2 weeks. But about 1 day ago developed fever. Feeling very weak. Appetite is down. Pain all over. Complains chest pain but seems to be chronic. No nausea or vomiting. No diarrhea. Micturating okay. No abdominal pain. Currently resting comfortably and hemodynamically stable. Past medical history. As mentioned above Past surgical history. Expiratory laparotomy. History of appendectomy cardiac cath. Colonoscopy. Cataract surgery. Social history. Quit smoking 1986 packs per records. No alcohol history. No drug use. Current living in correctional facility. Admission Exam Per Admitting Provider General- Not in distress Head- atraumatic Eyes- PERRL. ENT- oropharynx clear Neck- supple, no JVD. Lungs- clear to auscultation no wheezing or crackles Heart- regular rhythm; no murmur, no gallop. Abdomen- normal bowel sounds, soft, nontender, no distension Extremities- no pretibial edema, no erythema seen Neuro- alert, oriented PERRL, no facial palsy; no dysarthria; moves extremities Discharge Exam General: Alert, oriented. No acute distress Skin: No noted rashes or bruises Psych: Appropriate mood and affect HEENT: NC/AT CV: RRR Resp: Breath sounds clear bilaterally, no increased effort of breathing Abdomen: Soft, nontender Extremities: No edema in lower extremities bilaterally. Updated Medication List Medication Instructions Recorded Confirmed Type albuterol sulfate 90 mcg/actuation 2 puff inhalation QID PRN 03/22/24 03/22/24 History aerosol inhaler Shortness Of Breath Or Wheezing amlodipine 2.5 mg tablet 2.5 mg PO DAILY 03/22/24 03/22/24 History aspirin 81 mg tablet,delayed 81 mg PO DAILY 03/22/24 03/22/24 History release atorvastatin 10 mg tablet 10 mg PO DAILY 03/22/24 03/22/24 History duloxetine 60 mg capsule,delayed 60 mg PO DAILY 03/22/24 03/22/24 History release insulin human U-100 NPH-regulr 34 unit subcut BID 03/22/24 03/22/24 History 70-30 mix 100 unit/mL subcutaneous susp (Novolin 70/30 U-100 Insulin) insulin regular human 100 unit/mL 1 sliding scale dose subcut 03/22/24 03/22/24 History (3 mL) subcutaneous pen (Novolin R USEASDIRECTD FlexPen) losartan 100 mg tablet 100 mg PO DAILY 03/22/24 03/22/24 History metformin 1,000 mg tablet 1,000 mg PO BID 03/22/24 03/22/24 History montelukast 10 mg PO DAILY 03/22/24 03/22/24 History azithromycin 500 mg tablet 500 mg PO DAILY #2 tabs 03/25/24 Rx cefdinir 300 mg capsule 300 mg PO BID #16 caps 03/25/24 Rx oseltamivir 75 mg capsule (Tamiflu) 75 mg PO BID #4 caps 03/25/24 Rx prednisone 20 mg tablet 40 mg (2 x 20 mg) PO DAILY #6 tabs 03/25/24 Rx Hospital Stay Data Consultations 03/22/24 01:35 ED Decision to Admit Stat Diagnostic Imagining Performed 03/25/24 09:15 CT angio chest PE protocol Urgent Chest X-Ray 03/21/24 23:09 Exam(s): XR CXR 1 VIEW EXAM: XR Chest, 1 View CLINICAL HISTORY: Reason for exam: weakness, sob, cough. TECHNIQUE: Frontal view of the chest. COMPARISON: No relevant prior studies available. FINDINGS: Lungs: Mild pulmonary vascular congestion. No consolidation. Pleural space: Unremarkable. No pneumothorax. Heart: Unremarkable. No cardiomegaly. Mediastinum: Unremarkable. Normal mediastinal contour. Bones/joints: Unremarkable. No acute fracture. IMPRESSION: Mild pulmonary vessel congestion Electronically signed by: Judd Greenwood MD 03/22/24 01:35 AM Chest CTA 03/25/24 09:15 CT angio chest PE protocol CT DOSE: 876.27 mGy.cm HISTORY: 74 years-old Male with PE. Acute shortness of breath TECHNIQUE: Multiple CTA images of the chest were obtained after the intravenous administration of 118 ml Optiray. Coronal and sagittal MIPS were obtained from the axial data set and were submitted for review. All measurements were obtained according to NASCET criteria. A dose lowering technique was utilized adhering to the principles of ALARA. COMPARISON: Chest radiograph 03/21/2024 FINDINGS: CTA: Heart is normal in size. Extensive coronary artery calcifications. No pericardial effusion. Atherosclerosis of the aorta without aneurysm. Unremarkable pulmonary artery. CT CHEST: Unremarkable thyroid. No pathologically enlarged lymph nodes. No pneumothorax, pleural effusion or overt pulmonary edema. Mild pulmonary emphysema. Calcified subcentimeter granuloma superior segment left lower lobe. Mild left basilar mucous plugging with subsegmental tree-in-bud nodules on image 52 series 4. Subcentimeter benign-appearing fissural nodules measure up to 3 mm bilaterally. Central airways appear to be patent otherwise. No acute upper abdominal abnormality. Suggestion of hepatic steatosis. Cholecystectomy. Unremarkable soft tissues. No acute fracture. IMPRESSION: 1. No pulmonary emboli. 2. Mild basilar left lower lobe mucus plugging with an infectious or inflammatory bronchiolitis. 3. No pleural effusion, lobar airspace consolidation or lymphadenopathy. 4. Extensive coronary artery calcifications. ACT 112: Negative or not required by law. The above report was generated using voice recognition software. It may contain grammatical, syntax or spelling errors. Electronically signed by: Nando Palmer M.D. 03/25/2024 9:25 AM Discharge Instructions Given to Patient (Per Discharging Provider) Gabe, You are admitted and treated for a flu infection. You were also noted to have a urinary tract infection. Please continue with 2 more days of Tamiflu. There was concern that you might also have pneumonia. Please continue with 1 more day of the antibiotic azithromycin and 8 more days of the antibiotic cefdinir. Please continue with 3 more days of oral prednisone. Please keep close follow up with your primary care provider after discharge. Please do not hesitate to come back to the emergency room if your symptoms worsen or return. It was a pleasure taking care of you while you were here. Total Time Total Time Spent Total Time Spent (In Minutes): 65
[2024-03-25 12:59] VITALS: TEMP 98.4; O2SAT 93
[2024-03-25 13:25] VITALS: BP 162/82; PULSE 61
== END 2024-03-25 14:00 | DRG 193 ==
LOC: ED 23:05 → SUATTDRO 03-22 04:40 → EDINP 03-22 04:40 → 2W 03-22 13:35